=== PATIENT | male | born 1950 | race Caucasian/White ===

== ENCOUNTER 2024-02-12 11:24 | Outpatient (CLI) | payer MEDICARE, SELFPAY ==
[2024-02-12 13:37] LABS: PSA Diagnostic* 0.56 ng/mL (0.10-4.00)
[2024-02-13 19:35] LABS: Testosterone, Adult Male 228 ng/dL (300-720)
== END 2024-02-12 11:25 | disposition home or self-care (01) ==
PROVIDERS: Visit Provider Physician Assistant
DX: R97.21 Rising PSA following treatment for malignant neoplasm of prostate (principal)
CPT/HCPCS: 36415; 84153; 84403

== ENCOUNTER 2024-07-15 14:00 | Outpatient (RCR) | payer MEDICARE, SELFPAY ==
--- NOTE | 2024-02-12 12:04 | ONC.NURNOTE ---
Dx: Prostate cancer
--- NOTE | 2024-02-14 10:59 | URNOTE ---
Leuprolide (J9217) has been approved 02/20/2024-08/18/2023 x 1 dose. REf #[id number]
[2024-02-20 12:45] VITALS: BP 123/70; PULSE 97; RESP 16; TEMP 36.2; O2SAT 97
[2024-02-20] MEDS: LEUPROLIDE ACETATE 7.5 MG (SQ) SYRINGE SUBCUT (13:15)
--- NOTE | 2024-03-07 10:18 | URNOTE ---
?Request received for authorization for Leuprolide Acetate (Eligard) (J9217). Prior authorization is approved per [facility] from 03/20/2024 to 09/15/2024.
[2024-03-20 12:16] VITALS: BP 132/71; PULSE 65; RESP 16; TEMP 36.3; O2SAT 96
--- NOTE | 2024-05-01 12:42 | ONC.NURNOTE ---
Mail Room spoke to Babs at [place] [facility] regarding appt for elikevan. Pt due around 07/10/23, however, Dr. Feliz out of the office that week. Pt scheduled for MondayJul 15, at 1400 labs/eligard at [facility] and radiation appt at 1530. Pt verbalized understanding of plan of care.
[2024-07-15 14:42] VITALS: BP 137/75; PULSE 64; RESP 16; TEMP 36.6; O2SAT 94
[2024-07-15] MEDS: LEUPROLIDE ACETATE 7.5 MG (SQ) SYRINGE SUBCUT (14:49)
[2024-07-15 15:20] LABS: PSA Diagnostic* < 0.06 ng/mL (0.10-4.00)
== END 2024-08-18 23:59 | disposition home or self-care (01) ==
LOC: CCIC 14:00
PROVIDERS: Internal Medicine; Visit Provider Clinical Nurse Specialist
DX: C61 Malignant neoplasm of prostate (principal)
CPT/HCPCS: 36415; 84153; 96401; 96402; J9217